=== PATIENT | male | born 1950 | race Caucasian/White ===

== ENCOUNTER 2017-11-10 21:55 | Emergency (ER) | payer MEDICARE, OTHER ==
[2017-11-10 22:20] LABS: BILIRUBIN,URINE NEGATIVE (NEGATIVE); GLUCOSE, URINE (UA) 500 mg/dL (NEGATIVE); KETONES,URINE (UA) >=80 mg/dL (NEGATIVE); LEUKOCYTE ESTERASE, URINE SMALL (NEGATIVE); NITRITE,URINE POSITIVE (NEGATIVE); OCCULT BLOOD,URINE SMALL (NEGATIVE); PROTEIN,URINE TRACE mg/dL (NEGATIVE); UROBILINOGEN,URINE 0.2 (NORMAL) E.U./dL (NORMAL)
[2017-11-10] MEDS ORDERED: ONDANSETRON 4 MG/2 ML VIAL IVP STA (22:21)
[2017-11-10] MEDS ORDERED: SODIUM CHLORIDE 0.9% 1,000 ML IV ONE (22:21)
[2017-11-10 22:23] LABS: CLARITY,URINE HAZY (CLEAR)
[2017-11-10 22:27] LABS: BACTERIA,URINE Many /HPF (None Seen); RBC,URINE 0-5 /HPF (0-5); SQUAMOUS EPITHELIAL CELL,UR NONE SEEN (<= Few)
[2017-11-10 22:35] LABS: BASOPHILS % (AUTO) 0.2 %; HGB - HEMOGLOBIN 14.1 g/dL (14.0-18.0); LYMPHOCYTES # (AUTO) 0.5 10^3/uL (1.5-3.5); LYMPHOCYTES % (AUTO) 2.6 %; MEAN CORPUSCULAR HEMOGLOBIN 29.6 pg (27.0-31.0); MEAN CORPUSCULAR HGB CONC 33.2 g/dL (32.0-36.0); MEAN CORPUSCULAR VOLUME 89.1 fL (80.0-94.0); MEAN PLATELET VOLUME 10.6 fL (7.4-11.4); MONOCYTES # (AUTO) 1.7 10^3/uL (0.0-1.0); MONOCYTES % (AUTO) 8.4 %; NEUTROPHILS # (AUTO) 17.5 10^3/uL (1.5-6.6); NEUTROPHILS % (AUTO) 88.8 %; PLT - PLATELET COUNT 121 10^3/uL (130-450); RED BLOOD COUNT 4.77 10^6/uL (4.70-6.10); RED CELL DISTRIBUTION WIDTH 13.3 % (12.0-15.0); WHITE BLOOD COUNT 19.8 x10^3/uL (4.8-10.8)
--- NOTE | 2017-11-10 22:37 | ED Physician Documentation ---
PD HPI NVD - Stated complaint Stated Complaint: VOMITTING/DIZZY/NAUSEA - Chief complaint Chief Complaint: Abd Pain - History obtained from History obtained from: Patient - History of Present Illness Timing - onset: Enter time (01:00), Today Timing - details: Gradual onset Associated symptoms: Dizzy, Loss of appetite. No: Fever (has not been taking temperature, but experiencing chills and sweats), Abdominal pain, Chest pain, Dysuria Worsened by: Eating Similar symptoms before: Has not had sx before Recently seen: Not recently seen - Additonal information Additional information: nausea, vomiting since 1 AM. chills, sweats, dizziness. bilateral blurry vision at times. recently fell and hit his head, denies LOC. blood sugars have been running upper 100s-lower 200s Review of Systems Constitutional: reports: Chills, Sweats Cardiac: reports: Reviewed and negative Respiratory: reports: Reviewed and negative GI: reports: Nausea, Vomiting. denies: Abdominal Pain, Constipation, Diarrhea : reports: Frequency. denies: Dysuria PD PAST MEDICAL HISTORY - Past Medical History Past Medical History: Yes Cardiovascular: Hypertension, High cholesterol Endocrine/Autoimmune: Type 1 diabetes - Past Surgical History Past Surgical History: No - Present Medications Home Medications: Ambulatory Orders Medication Instructions Recorded Confirmed Atorvastatin Calcium 80 mg PO DAILY PM 11/10/17 11/10/17 Fluocinonide 1 applic TOP PRN PRN 11/10/17 11/10/17 Insulin Glargine [Lantus Solostar] 9 units SQ BID 11/10/17 11/10/17 Insulin Lispro [Humalog] 1 unit SQ AC 11/10/17 11/10/17 Losartan Potassium 25 mg PO DAILY 11/10/17 11/10/17 Ciprofloxacin HCl [Cipro] 500 mg PO BID #14 tablet 11/11/17 Meclizine HCl 12.5 - 25 mg PO Q6HR PRN #20 tablet 11/11/17 Ondansetron Odt [Zofran] 4 mg TL Q6H PRN #10 tablet 11/11/17 - Allergies Allergies/Adverse Reactions: Allergies Allergy/AdvReac Type Severity Reaction Status Date / Time No Known Drug Allergies Allergy Verified 11/10/17 22:11 PD ED PE NORMAL - Vitals Vital signs reviewed: Yes - General General: Alert and oriented X 3, No acute distress, Well developed/nourished - HEENT HEENT: PERRL, EOMI, Moist mucous membranes, Other (nystagmus with bilateral lateral gaze) - Neck Neck: Supple, no meningeal sign - Cardiac Cardiac: RRR, No murmur - Respiratory Respiratory: No respiratory distress, Clear bilaterally - Abdomen Abdomen: Normal bowel sounds, Soft, Non tender, Non distended - Derm Derm: Normal color, Warm and dry - Neuro Neuro: Alert and oriented X 3, credit advisor 2-12 intact, No motor deficit, No sensory deficit Results - Vitals Vitals: Vital Signs - 24 hr 11/10/17 11/10/17 11/10/17 21:59 22:36 23:33 Temperature 36.9 C 36.7 C Heart Rate 109 H 99 97 Respiratory 16 14 15 Rate Blood Pressure 155/71 H 147/86 H 141/81 H O2 Saturation 97 97 100 11/11/17 11/11/17 00:57 01:43 Temperature 37.0 C Heart Rate 101 H 99 Respiratory 18 18 Rate Blood Pressure 152/88 H 144/79 H O2 Saturation 96 99 Oxygen O2 Source Room air - Labs Labs: Microbiology 11/10/17 22:14 Urine Culture - Preliminary Urine,Clean Catch CULTURE IN PROGRESS. RESULTS TO FOLLOW. Laboratory Tests 11/10/17 11/10/17 11/10/17 22:06 22:14 22:28 WBC 19.8 H RBC 4.77 Hgb 14.1 Hct 42.4 MCV 89.1 MCH 29.6 MCHC 33.2 RDW 13.3 Plt Count 121 L MPV 10.6 Neut # (Auto) 17.5 H Lymph # (Auto) 0.5 L [place] # (Auto) 1.7 H Eos # (Auto) 0.0 Baso # (Auto) 0.0 Absolute Nucleated RBC 0.00 Nucleated RBC % 0.0 VBG pH VBG pCO2 VBG pO2 VBG HCO3 VBG Total CO2 VBG O2 Saturation VBG Base Excess Sodium Potassium Chloride Carbon Dioxide Anion Gap BUN Creatinine Estimated GFR (MDRD) Glucose POC Whole Bld Glucose 195 H Calcium Total Bilirubin AST ALT Alkaline Phosphatase Total Protein Albumin Globulin Albumin/Globulin Ratio Lipase Urine Color YELLOW Urine Clarity HAZY Urine pH 6.0 Ur Specific [place] 1.020 Urine Protein TRACE Urine Glucose (UA) 500 H Urine Ketones >=80 H Urine Occult Blood SMALL H Urine Nitrite POSITIVE H Urine Bilirubin NEGATIVE Urine Urobilinogen 0.2 (NORMAL) Ur Leukocyte Esterase SMALL H Urine RBC 0-5 Urine WBC >25 H Ur Squamous Epith Cells NONE SEEN Urine Bacteria Many H Urine Culture Comments INDICATED Serum Ketones 11/10/17 11/10/17 11/10/17 22:28 22:28 22:35 WBC RBC Hgb Hct MCV MCH MCHC RDW Plt Count MPV Neut # (Auto) Lymph # (Auto) [place] # (Auto) Eos # (Auto) Baso # (Auto) Absolute Nucleated RBC Nucleated RBC % VBG pH 7.427 H VBG pCO2 41.8 VBG pO2 38.6 VBG HCO3 26.9 VBG Total CO2 28.2 VBG O2 Saturation 77.6 VBG Base Excess 2.3 H Sodium 131 L Potassium 3.9 Chloride 97 L Carbon Dioxide 27 Anion Gap 7.0 BUN 15 Creatinine 0.8 Estimated GFR (MDRD) 96 Glucose 204 H POC Whole Bld Glucose Calcium 8.7 Total Bilirubin 1.1 H AST 20 ALT 17 Alkaline Phosphatase 51 Total Protein 7.1 Albumin 3.9 Globulin 3.2 Albumin/Globulin Ratio 1.2 Lipase 22 Urine Color Urine Clarity Urine pH Ur Specific [place] Urine Protein Urine Glucose (UA) Urine Ketones Urine Occult Blood Urine Nitrite Urine Bilirubin Urine Urobilinogen Ur Leukocyte Esterase Urine RBC Urine WBC Ur Squamous Epith Cells Urine Bacteria Urine Culture Comments Serum Ketones NEGATIVE 11/11/17 00:53 WBC RBC Hgb Hct MCV MCH MCHC RDW Plt Count MPV Neut # (Auto) Lymph # (Auto) [place] # (Auto) Eos # (Auto) Baso # (Auto) Absolute Nucleated RBC Nucleated RBC % VBG pH VBG pCO2 VBG pO2 VBG HCO3 VBG Total CO2 VBG O2 Saturation VBG Base Excess Sodium Potassium Chloride Carbon Dioxide Anion Gap BUN Creatinine Estimated GFR (MDRD) Glucose POC Whole Bld Glucose 208 H Calcium Total Bilirubin AST ALT Alkaline Phosphatase Total Protein Albumin Globulin Albumin/Globulin Ratio Lipase Urine Color Urine Clarity Urine pH Ur Specific [place] Urine Protein Urine Glucose (UA) Urine Ketones Urine Occult Blood Urine Nitrite Urine Bilirubin Urine Urobilinogen Ur Leukocyte Esterase Urine RBC Urine WBC Ur Squamous Epith Cells Urine Bacteria Urine Culture Comments Serum Ketones - Rads (name of study) CT head Radiology: Prelim report reviewed, See rad report PD MEDICAL DECISION MAKING - ED course Complexity details: reviewed results, re-evaluated patient, considered differential, d/w patient, d/w family ED course: reported resolution of symptoms after IV fluids, antivert, zofran - Sepsis Event Vital Signs: Vital Signs - 24 hr 11/10/17 11/10/17 11/10/17 21:59 22:36 23:33 Temperature 36.9 C 36.7 C Heart Rate 109 H 99 97 Respiratory 16 14 15 Rate Blood Pressure 155/71 H 147/86 H 141/81 H O2 Saturation 97 97 100 11/11/17 11/11/17 00:57 01:43 Temperature 37.0 C Heart Rate 101 H 99 Respiratory 18 18 Rate Blood Pressure 152/88 H 144/79 H O2 Saturation 96 99 Oxygen O2 Source Room air Departure - Departure Disposition: 01 Home, Self Care Clinical Impression: Vomiting, Dizziness, Cystitis Condition: Good Instructions: ED Dizziness UKO, ED UTI Cystitis Male, ED Nausea Vomiting Prescriptions: Meclizine HCl 12.5 - 25 mg PO Q6HR PRN #20 tablet PRN Reason: Dizziness Ciprofloxacin HCl [Cipro] 500 mg PO BID #14 tablet Ondansetron Odt [Zofran] 4 mg TL Q6H PRN #10 tablet PRN Reason: Nausea / Vomiting Discharge Date/Time: 11/11/17 02:00
[2017-11-10 22:39] LABS: VBG BASE EXCESS 2.3 mmol/L (-2 - +2); VBG PCO2 41.8 mmHg (41-51); VBG PH 7.427 (7.31-7.41); VBG PO2 38.6 mmHg (25-47); VBG TOTAL CO2 28.2 mmol/L (24-29)
[2017-11-10 22:50] LABS: ALBUMIN 3.9 g/dL (3.2-5.5); ALBUMIN/GLOBULIN RATIO 1.2 (1.0-2.2); BILIRUBIN,TOTAL 1.1 mg/dL (0.2-1.0); CALCIUM 8.7 mg/dL (8.5-10.3); CREATININE 0.8 mg/dL (0.6-1.2); TOTAL PROTEIN 7.1 g/dL (6.7-8.2)
[2017-11-10] MEDS ORDERED: MECLIZINE 12.5 MG TABLET PO STA (23:03)
--- NOTE | 2017-11-10 23:48 | CT Report ---
Procedure Date: 11/10/2017 Accession Number: [id number] / [id number] Procedure: CT - Head W/O CPT Code: FULL RESULT: EXAM: CT HEAD EXAM DATE: 11/10/2017 11:29 PM. CLINICAL HISTORY: Dizziness, visual changes, recent head injury. COMPARISON: None. TECHNIQUE: Multiaxial CT images were obtained from the foramen magnum to the vertex. Reformats: Sagittal and coronal. IV contrast: None. In accordance with CT protocol optimization, one or more of the following dose reduction techniques were utilized for this exam: automated exposure control, adjustment of mA and/or KV based on patient size, or use of iterative reconstructive technique. FINDINGS: Parenchyma: No intraparenchymal hemorrhage. No evidence of mass, midline shift, or CT findings of infarction. Nguyen-white differentiation is distinct. Extraaxial Spaces: Normal for age. No subdural or epidural collections identified. Ventricles: Normal in size and position. Sinuses and Orbits: Imaged paranasal sinuses, orbits, and mastoids show no significant abnormality. Bones: No evidence of fracture or calvarial defect. Other: None. IMPRESSION: No acute or focal intracranial abnormality. RADIA
[2017-11-11] MEDS ORDERED: cefTRIAXone 1 GM in SODIUM CHLORIDE 0.9% MINIBAG 100 ML IV STA (00:14)
[2017-11-11] MEDS ORDERED: SODIUM CHLORIDE 0.9% 1,000 ML IV STA (00:15)
[2017-11-11 01:44] VITALS: BP 144/79
== END 2017-11-11 02:00 | disposition home or self-care (01) ==
LOC: ED 21:55
DX: N30.90 Cystitis, unspecified without hematuria (principal); R42 Dizziness and giddiness; H53.8 Other visual disturbances; R11.2 Nausea with vomiting, unspecified; E10.9 Type 1 diabetes mellitus without complications; Z79.4 Long term (current) use of insulin; I10 Essential (primary) hypertension
CPT/HCPCS: 36415; 70450; 80053; 81001; 82009; 82803; 83690; 85025; 87086; 87181; 96361; 96365; 96375; 99283; 99284; A9270

== ENCOUNTER 2017-11-11 22:29 | Emergency (ER) | payer MEDICARE, OTHER ==
--- NOTE | 2017-11-11 22:55 | ED Physician Documentation ---
PD HPI MALE - Stated complaint Stated Complaint: CANNOT URINATE - Chief complaint Chief Complaint: General - History obtained from History obtained from: Patient - History of Present Illness Timing - onset: Today Associated symptoms: Unable to urinate Recently seen: Emergency Dept (Was seen here last night, and was prescribed Cipro for UTI.) - Additional information Additional information: The patient is a 67-year-old male who presents with urinary retention. He has been dribbling, but unable to urinate. He was seen here last night with abdominal pain and vomiting, and was diagnosed with acute urinary tract infection, for which he was prescribed Cipro. He denies fever, and has not had vomiting today. He reports history of similar symptoms about 20 years ago. Review of Systems Constitutional: denies: Fever Nose: denies: Congestion Cardiac: denies: Chest pain / pressure Respiratory: denies: Dyspnea, Cough GI: reports: Abdominal Pain. denies: Nausea, Vomiting : reports: Unable to Void. denies: Dysuria Skin: denies: Rash Musculoskeletal: denies: Back pain Neurologic: denies: Headache PD PAST MEDICAL HISTORY - Past Medical History Cardiovascular: Hypertension, High cholesterol Endocrine/Autoimmune: Type 2 diabetes - Past Surgical History Past Surgical History: No General: Appendectomy Ortho: Shoulder arthroplasty - Present Medications Home Medications: Ambulatory Orders Medication Instructions Recorded Confirmed Atorvastatin Calcium 80 mg PO DAILY PM 11/10/17 11/11/17 Fluocinonide 1 applic TOP PRN PRN 11/10/17 11/11/17 Insulin Glargine [Lantus Solostar] 9 units SQ BID 11/10/17 11/11/17 Insulin Lispro [Humalog] 1 unit SQ AC 11/10/17 11/11/17 Losartan Potassium 25 mg PO DAILY 11/10/17 11/11/17 Ciprofloxacin HCl [Cipro] 500 mg PO BID #14 tablet 11/11/17 11/11/17 Meclizine HCl 12.5 - 25 mg PO Q6HR PRN #20 tablet 11/11/17 11/11/17 Ondansetron Odt [Zofran] 4 mg TL Q6H PRN #10 tablet 11/11/17 11/11/17 - Allergies Allergies/Adverse Reactions: Allergies Allergy/AdvReac Type Severity Reaction Status Date / Time No Known Drug Allergies Allergy Verified 11/11/17 22:36 - Social History Does the pt smoke?: No Smoking Status: Former smoker Does the pt drink ETOH?: Yes PD ED PE NORMAL - Vitals Vital signs reviewed: Yes (Initially hypertensive.) - General General: Alert and oriented X 3, Well developed/nourished - HEENT HEENT: Atraumatic, Moist mucous membranes - Neck Neck: No adenopathy, No JVD - Cardiac Cardiac: RRR - Respiratory Respiratory: No respiratory distress, Clear bilaterally - Abdomen Abdomen: Normal bowel sounds, Soft, Other (Distended bladder, with associated tenderness to palpation in the suprapubic region, without rebound or guarding.) - Back Back: No CVA TTP - Derm Derm: No rash - Extremities Extremities: No edema, No calf tenderness / cord - Neuro Neuro: Alert and oriented X 3, Normal speech Results - Vitals Vitals: Vital Signs - 24 hr 11/11/17 11/12/17 22:35 00:41 Temperature 36.8 C Heart Rate 97 94 Respiratory 18 18 Rate Blood Pressure 155/79 H 144/86 H O2 Saturation 97 97 Oxygen O2 Source Room air - Labs Labs: Laboratory Tests 11/11/17 22:55 Urine Color LT. YELLOW Urine Clarity CLEAR Urine pH 6.5 Ur Specific [place] 1.010 Urine Protein NEGATIVE Urine Glucose (UA) >=1000 H Urine Ketones TRACE Urine Occult Blood MODERATE H Urine Nitrite NEGATIVE Urine Bilirubin NEGATIVE Urine Urobilinogen 0.2 (NORMAL) Ur Leukocyte Esterase TRACE H Urine RBC 11-25 H Urine WBC 11-25 H Urine WBC Clumps PRESENT Ur Squamous Epith Cells RARE Squamous Urine Bacteria None Seen Ur Microscopic Review INDICATED Urine Culture Comments INDICATED PD MEDICAL DECISION MAKING - ED course Complexity details: reviewed old records, reviewed results, re-evaluated patient , considered differential, d/w patient, d/w family ED course: The patient's presentation is significant for urinary tract infection with acute urinary retention. When Mcdonough catheter was inserted greater than 1 L of urine drained. Urinalysis is positive for microscopic hematuria as well as pyuria. There are no blood clots in the urine. His presentation does not suggest pyelonephritis nor sepsis. He is discharged with a leg bag in place. I discussed with him the care of Mcdonough catheter, importance of outpatient follow-up within the next 3-5 days, continued antibiotic treatment, as well as potentially worrisome signs or symptoms that should prompt reevaluation in the emergency department. - Sepsis Event Vital Signs: Vital Signs - 24 hr 11/11/17 11/12/17 22:35 00:41 Temperature 36.8 C Heart Rate 97 94 Respiratory 18 18 Rate Blood Pressure 155/79 H 144/86 H O2 Saturation 97 97 Oxygen O2 Source Room air Departure - Departure Disposition: 01 Home, Self Care Clinical Impression: Acute urinary retention UTI (urinary tract infection) Qualifiers: Urinary tract infection type: acute cystitis Hematuria presence: with hematuria Qualified Code(s): N30.01 - Acute cystitis with hematuria Condition: Stable Instructions: ED Catheter Care Mcdonough, ED Retention Urinary Male, ED UTI Cystitis Male Comments: Keep Mcdonough catheter in place for the next 3 days. Continue taking Cipro twice daily as previously prescribed. Follow up with your primary physician within 3 days if possible. Return to the emergency department if recurrent or increasing abdominal pain, fever with shaking chills, or otherwise worsening symptoms. Discharge Date/Time: 11/12/17 00:44
[2017-11-11 23:07] LABS: BILIRUBIN,URINE NEGATIVE (NEGATIVE); GLUCOSE, URINE (UA) >=1000 mg/dL (NEGATIVE); KETONES,URINE (UA) TRACE mg/dL (NEGATIVE); LEUKOCYTE ESTERASE, URINE TRACE (NEGATIVE); NITRITE,URINE NEGATIVE (NEGATIVE); OCCULT BLOOD,URINE MODERATE (NEGATIVE); PH,URINE 6.5 PH (5.0-7.5); PROTEIN,URINE NEGATIVE (NEGATIVE); UROBILINOGEN,URINE 0.2 (NORMAL) E.U./dL (NORMAL)
[2017-11-11 23:23] LABS: CLARITY,URINE CLEAR (CLEAR)
[2017-11-11 23:24] LABS: BACTERIA,URINE None Seen /HPF (None Seen); SQUAMOUS EPITHELIAL CELL,UR RARE Squamous (<= Few); WBC CLUMPS,URINE PRESENT
[2017-11-12 00:42] VITALS: BP 144/86
== END 2017-11-12 00:44 | disposition home or self-care (01) ==
LOC: ED 22:29
DX: R33.9 Retention of urine, unspecified (principal); N30.01 Acute cystitis with hematuria; I10 Essential (primary) hypertension; E11.9 Type 2 diabetes mellitus without complications; Z79.4 Long term (current) use of insulin; Z87.891 Personal history of nicotine dependence
CPT/HCPCS: 51702; 51798; 81001; 81003; 87086; 99283

== ENCOUNTER 2017-11-12 21:52 | Observation (INO) | payer MEDICARE, OTHER ==
--- NOTE | 2017-11-12 22:06 | ED Physician Documentation ---
History of Present Illness - Stated complaint Stated Complaint: FEVER/DIZZINESS - Chief complaint Chief Complaint: Neuro - History obtained from History obtained from: Patient - History of Present Illness Timing: How many days ago (3-4) Pain level now: 0 Improved by: rest Worsened by: standing, ambulating Associated symptoms: nausea, vomiting, dizziness, unsteady gait - Additonal information Additional information: T+R 2 days ago and again yesterday. 2 days ago he had nausea, vomiting, dizziness; symptoms improved with fluids, zofran, antivert. Tx. for UTI. Returned yesterday for urinary retention, resolved with talavera placement ( remains in place). Today, he has had increasing dizziness despite using antivert , worsening nausea despite using zofran (vomiting during this H+P), and had fever Tmax 101 tonight with diaphoresis and lightheadedness. Review of Systems Constitutional: reports: Fever, Chills, Sweats Eyes: reports: Reviewed and negative Ears: reports: Reviewed and negative Nose: reports: Reviewed and negative Throat: reports: Reviewed and negative Cardiac: reports: Reviewed and negative Respiratory: reports: Reviewed and negative GI: reports: Nausea, Vomiting. denies: Abdominal Pain, Diarrhea : denies: Dysuria, Frequency Skin: reports: Reviewed and negative Musculoskeletal: reports: Reviewed and negative Neurologic: reports: Generalized weakness. denies: Focal weakness, Numbness, Syncope, Confused, Altered mental status, Headache PD PAST MEDICAL HISTORY - Past Medical History Cardiovascular: Hypertension, High cholesterol Endocrine/Autoimmune: Type 2 diabetes - Past Surgical History Past Surgical History: No General: Appendectomy Ortho: Shoulder arthroplasty - Present Medications Home Medications: Ambulatory Orders Medication Instructions Recorded Confirmed Atorvastatin Calcium 80 mg PO DAILY 11/10/17 11/13/17 Fluocinonide 1 applic TOP PRN PRN 11/10/17 11/13/17 Insulin Glargine [Lantus Solostar] 9 units SQ BID 11/10/17 11/13/17 Insulin Lispro [Humalog] 1 - 10 unit SQ AC 11/10/17 11/13/17 Losartan Potassium 25 mg PO DAILY 11/10/17 11/13/17 Ciprofloxacin HCl [Cipro] 500 mg PO BID #14 tablet 11/11/17 11/13/17 Meclizine HCl 12.5 - 25 mg PO Q6HR PRN #20 tablet 11/11/17 11/13/17 Ondansetron Odt [Zofran Odt] 4 mg TL Q6H PRN #10 tablet 11/11/17 11/13/17 Meclizine [Antivert] 12.5 mg PO Q6H PRN #15 tablet 11/13/17 - Allergies Allergies/Adverse Reactions: Allergies Allergy/AdvReac Type Severity Reaction Status Date / Time No Known Drug Allergies Allergy Verified 11/12/17 22:00 - Social History Does the pt smoke?: No Smoking Status: Former smoker Does the pt drink ETOH?: Yes PD ED PE NORMAL - Vitals Vital signs reviewed: Yes - General General: Alert and oriented X 3, Well developed/nourished, Other (diaphoretic, vomiting at times) - HEENT HEENT: PERRL, EOMI, Other (dry mucous membranes) - Neck Neck: Supple, no meningeal sign - Cardiac Cardiac: RRR, No murmur - Respiratory Respiratory: No respiratory distress, Clear bilaterally - Abdomen Abdomen: Soft, Non tender, Non distended - Back Back: No CVA TTP - Derm Derm: Normal color, Warm and dry - Extremities Extremities: No edema - Neuro Neuro: Alert and oriented X 3 Eye Opening: Spontaneous Motor: Obeys Commands Verbal: Oriented GCS Score: 15 Results - Vitals Vitals: Vital Signs - 24 hr 11/12/17 11/13/17 23:31 00:04 Temperature 37.0 C Heart Rate 70 85 Respiratory 15 16 Rate Blood Pressure 148/83 H 147/76 H O2 Saturation 99 96 Oxygen O2 Source Room air - Labs Labs: Laboratory Tests 11/12/17 11/12/17 11/12/17 22:30 22:30 22:30 WBC 5.7 RBC 4.54 L Hgb 13.4 L Hct 40.5 L MCV 89.2 MCH 29.5 MCHC 33.1 RDW 13.5 Plt Count 108 L MPV 10.1 Neut # (Auto) 4.6 Lymph # (Auto) 0.5 L [place] # (Auto) 0.6 Eos # (Auto) 0.0 Baso # (Auto) 0.0 Absolute Nucleated RBC 0.00 Nucleated RBC % 0.1 VBG pH VBG pCO2 VBG pO2 VBG HCO3 VBG Total CO2 VBG O2 Saturation VBG Base Excess Sodium 133 L Potassium 4.0 Chloride 99 L Carbon Dioxide 27 Anion Gap 7.0 BUN 16 Creatinine 1.1 Estimated GFR (MDRD) 67 L Glucose 286 H Lactic Acid 0.7 Calcium 8.3 L Total Bilirubin 0.8 AST 30 ALT 24 Alkaline Phosphatase 52 Total Protein 6.5 L Albumin 3.0 L Globulin 3.5 Albumin/Globulin Ratio 0.9 L Lipase 21 L Urine Color Urine Clarity Urine pH Ur Specific [place] Urine Protein Urine Glucose (UA) Urine Ketones Urine Occult Blood Urine Nitrite Urine Bilirubin Urine Urobilinogen Ur Leukocyte Esterase Urine RBC Urine WBC Ur Squamous Epith Cells Urine Bacteria Ur Microscopic Review Urine Culture Comments Serum Ketones 11/12/17 11/12/17 11/12/17 22:49 23:00 23:00 WBC RBC Hgb Hct MCV MCH MCHC RDW Plt Count MPV Neut # (Auto) Lymph # (Auto) [place] # (Auto) Eos # (Auto) Baso # (Auto) Absolute Nucleated RBC Nucleated RBC % VBG pH 7.414 H VBG pCO2 42.2 VBG pO2 66.6 H VBG HCO3 26.4 VBG Total CO2 27.7 VBG O2 Saturation 93.1 H VBG Base Excess 1.6 Sodium Potassium Chloride Carbon Dioxide Anion Gap BUN Creatinine Estimated GFR (MDRD) Glucose Lactic Acid Calcium Total Bilirubin AST ALT Alkaline Phosphatase Total Protein Albumin Globulin Albumin/Globulin Ratio Lipase Urine Color LT. YELLOW Urine Clarity HAZY Urine pH 6.0 Ur Specific [place] 1.020 Urine Protein TRACE Urine Glucose (UA) >=1000 H Urine Ketones 40 H Urine Occult Blood SMALL H Urine Nitrite NEGATIVE Urine Bilirubin NEGATIVE Urine Urobilinogen 0.2 (NORMAL) Ur Leukocyte Esterase NEGATIVE Urine RBC 11-25 H Urine WBC 0-3 Ur Squamous Epith Cells NONE SEEN Urine Bacteria None Seen Ur Microscopic Review INDICATED Urine Culture Comments NOT INDICATED Serum Ketones NEGATIVE PD MEDICAL DECISION MAKING - ED course Complexity details: reviewed old records, reviewed results, re-evaluated patient , considered differential, d/w patient ED course: Symptoms improved with IV fluids, antivert, zofran. However, when he tried to ambulate, he was very unsteady and would likely have fallen if RNs were not standing next to him. Upon returning to his bed, he reported he again felt dizzy and nauseas, will admit for recurring symptoms. - Sepsis Event Vital Signs: Vital Signs - 24 hr 11/12/17 11/13/17 23:31 00:04 Temperature 37.0 C Heart Rate 70 85 Respiratory 15 16 Rate Blood Pressure 148/83 H 147/76 H O2 Saturation 99 96 Oxygen O2 Source Room air Departure - Departure Disposition: ED Place in Observation Clinical Impression: Dizziness Condition: Poor Discharge Date/Time: 11/13/17 01:49
[2017-11-12 22:44] LABS: BASOPHILS % (AUTO) 0.3 %; EOSINOPHILS % (AUTO) 0.1 %; HGB - HEMOGLOBIN 13.4 g/dL (14.0-18.0); LYMPHOCYTES # (AUTO) 0.5 10^3/uL (1.5-3.5); LYMPHOCYTES % (AUTO) 8.3 %; MEAN CORPUSCULAR HEMOGLOBIN 29.5 pg (27.0-31.0); MEAN CORPUSCULAR HGB CONC 33.1 g/dL (32.0-36.0); MEAN CORPUSCULAR VOLUME 89.2 fL (80.0-94.0); MEAN PLATELET VOLUME 10.1 fL (7.4-11.4); MONOCYTES # (AUTO) 0.6 10^3/uL (0.0-1.0); MONOCYTES % (AUTO) 10.3 %; NEUTROPHILS # (AUTO) 4.6 10^3/uL (1.5-6.6); PLT - PLATELET COUNT 108 10^3/uL (130-450); RED BLOOD COUNT 4.54 10^6/uL (4.70-6.10); RED CELL DISTRIBUTION WIDTH 13.5 % (12.0-15.0); WHITE BLOOD COUNT 5.7 x10^3/uL (4.8-10.8)
[2017-11-12] MEDS ORDERED: SODIUM CHLORIDE 0.9% 1,000 ML IV STA (22:47)
[2017-11-12] MEDS ORDERED: ONDANSETRON 4 MG/2 ML VIAL IVP STA (22:47)
[2017-11-12] MEDS ORDERED: cefTRIAXone 1 GM in SODIUM CHLORIDE 0.9% MINIBAG 100 ML IV STA (22:47)
[2017-11-12 22:57] LABS: ALBUMIN/GLOBULIN RATIO 0.9 (1.0-2.2); BILIRUBIN,TOTAL 0.8 mg/dL (0.2-1.0); CALCIUM 8.3 mg/dL (8.5-10.3); CREATININE 1.1 mg/dL (0.6-1.2); TOTAL PROTEIN 6.5 g/dL (6.7-8.2)
[2017-11-12 23:10] LABS: BILIRUBIN,URINE NEGATIVE (NEGATIVE); GLUCOSE, URINE (UA) >=1000 mg/dL (NEGATIVE); KETONES,URINE (UA) 40 mg/dL (NEGATIVE); LEUKOCYTE ESTERASE, URINE NEGATIVE (NEGATIVE); NITRITE,URINE NEGATIVE (NEGATIVE); OCCULT BLOOD,URINE SMALL (NEGATIVE); PROTEIN,URINE TRACE mg/dL (NEGATIVE); UROBILINOGEN,URINE 0.2 (NORMAL) E.U./dL (NORMAL)
[2017-11-12 23:11] LABS: VBG PCO2 42.2 mmHg (41-51); VBG PH 7.414 (7.31-7.41); VBG PO2 66.6 mmHg (25-47)
[2017-11-12 23:12] LABS: VBG BASE EXCESS 1.6 mmol/L (-2 - +2); VBG TOTAL CO2 27.7 mmol/L (24-29)
[2017-11-12 23:20] LABS: CLARITY,URINE HAZY (CLEAR)
[2017-11-12 23:47] LABS: BACTERIA,URINE None Seen /HPF (None Seen); SQUAMOUS EPITHELIAL CELL,UR NONE SEEN (<= Few)
[2017-11-13] MEDS ORDERED: MECLIZINE 12.5 MG TABLET PO STA (00:18)
[2017-11-13] MEDS ORDERED: MECLIZINE 12.5 MG TABLET PO PRN (00:56)
[2017-11-13] MEDS ORDERED: ZOLPIDEM 5 MG TABLET PO PRN (00:57)
[2017-11-13] MEDS ORDERED: ONDANSETRON 4 MG/2 ML VIAL IVP PRN (00:57)
[2017-11-13] MEDS ORDERED: ACETAMINOPHEN 325 MG TABLET PO PRN (00:57)
[2017-11-13] MEDS ORDERED: SODIUM CHLORIDE FLUSH 0.9% 10 ML SYRINGE IVP PRN (00:57)
[2017-11-13] MEDS ORDERED: PROCHLORPERAZINE 10 MG/2 ML VIAL IVP PRN (00:57)
[2017-11-13] MEDS ORDERED: PROMETHAZINE 25 MG/1 ML VIAL IM PRN (00:57)
[2017-11-13] MEDS ORDERED: oxyCODONE 5 MG TABLET PO PRN (00:57)
[2017-11-13] MEDS ORDERED: ATORVASTATIN 40 MG TABLET PO SCH (01:00)
[2017-11-13] MEDS ORDERED: SODIUM CHLORIDE 0.9% 1,000 ML IV SCH (01:00)
--- NOTE | 2017-11-13 01:06 | HISTORY & PHYSICAL EXAMINATION ---
Chief Complaint - Chief Complaint Chief Complaint: Vertigo History of Present Illness - Admitted From Admitted From:: Emergency Department - History Obtained From Records Reviewed: Yes History obtained from: Patient and patients Exam Limitations: Patient unable to ambulate secondary to vertigo - History of Present Illness HPI Comment/Other: Patient is a very pleasant 67-year-old gentleman with a past medical history significant for type 1 diabetes mellitus, hypertension, hyperlipidemia and right shoulder arthritis who presented to the emergency department with a chief complaint of vertigo. The patient states he was in his normal state of health until 4 days ago when he began having flulike symptoms with vomiting, dizziness and chills that continued to worsen through the night and patient was unable to get any sleep. The next day the patient came to the emergency department as he continued to feel nauseated and had dizziness. In the emergency department the patient underwent complete workup which revealed a leukocytosis of 19,000 with urine analysis positive for UTI with greater than 25 WBCs. The patient was given 1 dose of IV ceftriaxone and IV fluids and then sent home on oral ciprofloxacin. Of note the patient states that one week ago he tripped and hit his head on a stack of kayaks and then on a concrete floor. He however denies a headache and did undergo a CT of his head when he presented to the emergency department initially that was negative. The patient states that he did feel better and was able to go home from the emergency department. He states that the next day he began developing urinary retention and had to come back to the emergency department to have a Mcdonough catheter placed which he states made him feel significantly better. He states that he felt better shortly however once he returned home he states that his vertigo returned. He states that his vertigo was so severe that he could not stand up without falling over. He states that last night he had to crawl to get to the bathroom just to avoid the sensation of dizziness and avoid falling over. The patient states that he continued to have nausea. He states that he could not get up from his chair or walk. Finally he states his daughter convinced him to come back to the emergency department as his vertigo was so severe. The patient denies any headache or any focal neurologic deficits. The patient denies any ear pain or tinnitus. The patient denies any runny nose, sore throat, nasal congestion. The patient denies any cough or shortness of breath. The patient denies having any fevers or chills in the last 24 hours. The patient does state that he was having blurred vision when he first presented to the emergency department 3 days ago but he states that this is resolved. The patient also stated that he had some dysuria when he first presented but this is improved with antibiotics. The patient denies any abdominal pain, diarrhea, constipation, joint pain, muscle aches, joint swelling, back pain, neck stiffness, recent unintentional weight loss, hair loss, skin changes, night sweats, polyuria or polydipsia. On presentation to the emergency department the patient was afebrile, he was tachycardic and hypertensive. The patient was not in any respiratory distress and saturating well on room air. The patient underwent routine lab work which showed a normal WBC count, mild thrombocytopenia, normal lactic acid, normal troponin, hyperglycemia, mild hyponatremia and otherwise electrolytes were within normal limits. The patient's urine analysis showed 11-25 RBCs but no bacteria or WBCs were seen. In the emergency department the patient attempted to ambulate but continued to get vertigo and then was falling to the left side. The patient needed to be helped back to his bed. Given the severity of the patient's vertigo it was felt that patient needed further workup for possibility of a posterior stroke. The patient was placed in observation for further workup. History - Past Medical History Cardiovascular: reports: Hypertension, High cholesterol Respiratory: reports: None Neuro: reports: None Endocrine/Autoimmune: reports: Type 2 diabetes GI: reports: None : reports: None HEENT: reports: None Psych: reports: None Musculoskeletal: reports: Osteoarthritis Derm: reports: None - Past Surgical History General: reports: Appendectomy Ortho: reports: Shoulder arthroplasty - Family & Social History Family History: Mother: Alive and Well, Parkinson's Disease, Father: Alive and Well, CVA/TIA, Other family: Diabetes, Type 2 Living arrangement: At home Living Situation: Alone Social History Notes: The patient lives in [facility] and move their just 3 months ago. He previously lived in [place], [place]. The patient's daughter has a home on [facility] but lives in [place]. The patient is a . 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 The patient states that he quit smoking 35 years ago and smoked for about 5 years up to a pack a day. The patient states that he drinks socially and denies any illicit drug use. - POLST Patient has POLST: No POLST Status: Full Code Meds/Allgy - Home Medications Home Medications: Ambulatory Orders Medication Instructions Recorded Confirmed Atorvastatin Calcium 80 mg PO DAILY PM 11/10/17 11/11/17 Fluocinonide 1 applic TOP PRN PRN 11/10/17 11/11/17 Insulin Glargine [Lantus Solostar] 9 units SQ BID 11/10/17 11/11/17 Insulin Lispro [Humalog] 1 unit SQ AC 11/10/17 11/11/17 Losartan Potassium 25 mg PO DAILY 11/10/17 11/11/17 Ciprofloxacin HCl [Cipro] 500 mg PO BID #14 tablet 11/11/17 11/11/17 Meclizine HCl 12.5 - 25 mg PO Q6HR PRN #20 tablet 11/11/17 11/11/17 Ondansetron Odt [Zofran] 4 mg TL Q6H PRN #10 tablet 11/11/17 11/11/17 - Allergies Allergies/Adverse Reactions: Allergies Allergy/AdvReac Type Severity Reaction Status Date / Time No Known Drug Allergies Allergy Verified 11/12/17 22:00 Review of Systems - Other Findings Other Findings: A comprehensive review of systems was performed the pertinent positives and negatives are stated above in the HPI and the remainder of the review of systems is negative. Exam - Vital Signs Reviewed Vital Signs: Yes Vital Signs: Vital Signs x48h Temp Pulse Resp BP Pulse Ox 11/13/17 01:02 83 16 149/79 H 96 11/13/17 00:04 85 16 147/76 H 96 11/12/17 23:31 37.0 C 70 15 148/83 H 99 11/12/17 23:02 87 17 174/90 H 95 11/12/17 21:56 37.3 C 105 H 16 154/94 H 95 - Physical Exam General Appearance: positive: No acute distress, Alert Eyes Bilateral: positive: Normal inspection, PERRL, EOMI, No lid inflammation, Conjunctivae nml ENT: positive: ENT inspection nml, Pharynx nml, Dry mucous membranes Neck: positive: Nml inspection, Thyroid nml, No JVD, Trachea midline. negative : Thyromegaly, Lymphadenopathy (R), Lymphadenopathy (L), Stiff neck, Carotid bruit, Tracheal deviation Respiratory: positive: Chest non-tender, No respiratory distress, Breath sounds nml. negative: Wheezes, Rales, Rhonchi Cardiovascular: positive: Regular rate & rhythm, No murmur, No gallop Peripheral Pulses: positive: 2+ Abdomen: positive: Non-tender, No organomegaly, Nml bowel sounds, No distention. negative: Guarding, Rebound, Hepatomegaly, Splenomegaly Back: positive: Nml inspection. negative: CVA tenderness (R), CVA tenderness (L ) Skin: positive: Color nml, No rash, Warm, Dry. negative: Diaphoresis, Pallor, Skin rash Extremities: positive: Non-tender, Full ROM, Nml appearance, No pedal edema Neurologic/Psychiatric: positive: Oriented x3, CN's nml (2-12), Motor nml, Sensation nml, Mood/affect nml Conclusion/Plan - Problem List (1) Vertigo Conclusion/Plan: The patient has been having continued symptoms of vertigo off and on since Sunday. The symptoms have become gradually more severe to a point where the patient is unable to stand or walk. When the patient attempts to walk he falls over. While lying in bed the patient's symptoms are improved. On examination the patient does not have any cerebellar signs or any focal deficits. The patient did have horizontal nystagmus on presentation but no longer has a horizontal nystagmus. Given that the patient's symptoms have not resolved it is felt that patient should undergo further workup for possible posterior stroke. Patient is being placed in observation for further workup Plan: Aspirin Lipitor Meclazine CTA head and neck MRI brain Echo Lipid profile [facility] (2) UTI (urinary tract infection) Conclusion/Plan: Patient was diagnosed with a urinary tract infection 3 days ago and was sent home with oral ciprofloxacin. Patient's UTI appears to be improving although he did have urinary retention and had a Mcdonough placed yesterday. The patient's urine analysis today shows no WBCs or bacteria. The patient's urine cultures growing E. coli but susceptibilities are not back. Plan: Continue ciprofloxacin Follow-up urine cultures Qualifiers: Urinary tract infection type: acute cystitis Hematuria presence: with hematuria Qualified Code(s): N30.01 - Acute cystitis with hematuria (3) Urinary retention Conclusion/Plan: The patient has urinary retention likely secondary to his urinary tract infection. Patient had a Mcdonough catheter placed in the emergency department the other day. For now we will continue the Mcdonough catheter but prior to discharge we will consider doing a trial of void. (4) Hyponatremia Conclusion/Plan: The patient has hyponatremia on presentation to the emergency department with a sodium of 133. The patient does appear to be dry and dehydrated. This is likely hypovolemic hyponatremia patient will be given IV fluids and we will continue to monitor his sodium. (5) Diabetes mellitus Conclusion/Plan: The patient has a history of type 1 diabetes and is on insulin long-term. The patient's blood glucose is elevated on presentation this is likely due to ongoing infection. While the patient is hospitalized she will be placed on sliding scale insulin and continued on his home dose of Lantus. We will place the patient on diabetic diet. We will check a hemoglobin A1c. Patient's blood glucose will be checked before meals at bedtime Qualifiers: Diabetes mellitus type: type 1 Diabetes mellitus complication status: without complication Qualified Code(s): E10.9 - Type 1 diabetes mellitus without complications (6) Hypertension Conclusion/Plan: The patient has a history of hypertension and is on losartan at home. For now we will hold the patient's dose of losartan as were concerned about possible CVA. We will allow for permissive hypertension. (7) Hyperlipidemia Conclusion/Plan: Patient has a history of hyperlipidemia and is on Lipitor at home. We will continue the patient's Lipitor while he is hospitalized here especially in the setting of possible CVA. Qualifiers: Hyperlipidemia type: unspecified Qualified Code(s): E78.5 - Hyperlipidemia , unspecified - Lab Results Lab results reviewed: Yes Fish Bones: 11/12/17 22:30 11/12/17 22:30 Other Lab Results: Laboratory Results WBC 5.7 x10^3/uL (4.8-10.8) 11/12/17 22:30 RBC 4.54 10^6/uL (4.70-6.10) L 11/12/17 22:30 Hgb 13.4 g/dL (14.0-18.0) L 11/12/17 22:30 Hct 40.5 % (42.0-52.0) L 11/12/17 22:30 MCV 89.2 fL (80.0-94.0) 11/12/17 22: MCH 29.5 pg (27.0-31.0) 11/12/17: MCHC 33.1 g/dL (32.0-36.0) 11/12/17 22: RDW 13.5 % (12.0-15.0) 11/12/17 22: Plt Count 108 10^3/uL (130-450) L 11/12/17 22: MPV 10.1 fL (7.4-11.4) 11/12/17 22:30 Neut # (Auto) 4.6 10^3/uL (1.5-6.6) 11/12/17: Lymph # (Auto) 0.5 10^3/uL (1.5-3.5) L 11/12/17: [place] # (Auto) 0.6 10^3/uL (0.0-1.0) 11/12/17 22: Eos # (Auto) 0.0 10^3/uL (0.0-0.7) 11/12/17: Baso # (Auto) 0.0 10^3/uL (0.0-0.1) 11/12/17: Absolute Nucleated RBC 0.00 x10^3/uL 11/12/17 22: Nucleated RBC % 0.1 /100WBC 11/12/17 22:30 VBG pH 7.414 (7.31-7.41) H 11/12/17 23:00 VBG pCO2 42.2 mmHg (41-51) 11/12/17 23:00 VBG pO2 66.6 mmHg (25-47) H 11/12/17 23:00 VBG HCO3 26.4 mmol/L (23-28) 11/12/17 23:00 VBG Total CO2 27.7 mmol/L (24-29) 11/12/17 23:00 VBG O2 Saturation 93.1 % (60-80) H 11/12/17 23:00 VBG Base Excess 1.6 mmol/L (-2 - +2) 11/12/17 23:00 Sodium 133 mmol/L (135-145) L 11/12/17 22:30 Potassium 4.0 mmol/L (3.5-5.0) 11/12/17 22:30 Chloride 99 mmol/L (101-111) L 11/12/17 22:30 Carbon Dioxide 27 mmol/L (21-32) 11/12/17 22:30 Anion Gap 7.0 (6-13) 11/12/17 22:30 BUN 16 mg/dL (6-20) 11/12/17 22:30 Creatinine 1.1 mg/dL (0.6-1.2) 11/12/17 22:30 Estimated GFR (MDRD) 67 (>89) L 11/12/17 22:30 Glucose 286 mg/dL (70-100) H 11/12/17 22:30 Lactic Acid 0.7 mmol/L (0.5-2.2) 11/12/17:30 Calcium 8.3 mg/dL (8.5-10.3) L 11/12/17:30 Total Bilirubin 0.8 mg/dL (0.2-1.0) 11/12/17 22:30 AST 30 IU/L (10-42) 11/12/17 22:30 ALT 24 IU/L (10-60) 11/12/17 22:30 Alkaline Phosphatase 52 IU/L (42-121) 11/12/17 22:30 Total Protein 6.5 g/dL (6.7-8.2) L 11/12/17 22:30 Albumin 3.0 g/dL (3.2-5.5) L 11/12/17 22:30 Globulin 3.5 g/dL (2.1-4.2) 11/12/17 22:30 Albumin/Globulin Ratio 0.9 (1.0-2.2) L 11/12/17 22:30 Lipase 21 U/L (22-51) L 11/12/17 22:30 Urine Color LT. YELLOW 11/12/17 23:00 Urine Clarity HAZY (CLEAR) 11/12/17 23:00 Urine pH 6.0 PH (5.0-7.5) 11/12/17 23:00 Ur Specific [place] 1.020 (1.002-1.030) 11/12/17 23:00 Urine Protein TRACE mg/dL (NEGATIVE) 11/12/17 23:00 Urine Glucose (UA) >=1000 mg/dL (NEGATIVE) H 11/12/17 23:00 Urine Ketones 40 mg/dL (NEGATIVE) H 11/12/17 23:00 Urine Occult Blood SMALL (NEGATIVE) H 11/12/17 23:00 Urine Nitrite NEGATIVE (NEGATIVE) 11/12/17 23:00 Urine Bilirubin NEGATIVE (NEGATIVE) 11/12/17 23:00 Urine Urobilinogen 0.2 (NORMAL) E.U./dL (NORMAL) 11/12/17 23:00 Ur Leukocyte Esterase NEGATIVE (NEGATIVE) 11/12/17 23:00 Urine RBC 11-25 /HPF (0-5) H 11/12/17 23:00 Urine WBC 0-3 /HPF (0-3) 11/12/17 23:00 Ur Squamous Epith Cells NONE SEEN (<= Few) 11/12/17 23:00 Urine Bacteria None Seen /HPF (None Seen) 11/12/17 23:00 Ur Microscopic Review INDICATED 11/12/17 23:00 Urine Culture Comments NOT INDICATED 11/12/17 23:00 Serum Ketones NEGATIVE (NEGATIVE) 11/12/17 22:49 - Diagnostic Imaging Results Diagnostic Imaging Results: positive: Final report reviewed Diagnostic Imaging Results Comments: Head CT angiogram Impression: No large vessel occlusion stenosis or aneurysm CT angiogram neck Impression: Mild atherosclerotic calcification of both carotid bulbs without stenosis. Vertebral arteries are patent in the neck. No finding concerning for dissection. Rounded, partially gas containing left paraesophageal process measures roughly 12 mm in diameter, presumed esophageal diverticulum. - EKG Results EKG Interpreted Independently: Yes EKG Findings: Normal sinus rhythm with no ST elevations or ischemic changes Core Measures - Anticipated LOS I expect patient to be DC'd or transferred within 96 hours.: Yes - DVT/VTE - Prophylaxis VTE/DVT Prophylaxis med ordered at admit?: Yes
[2017-11-13] MEDS ORDERED: IOPAMIDOL-300 100 ML VIAL ONE (01:54)
[2017-11-13] MEDS ORDERED: IOPAMIDOL-300 100 ML VIAL IVP ONE (02:19)
[2017-11-13] MEDS: SODIUM CHLORIDE FLUSH 0.9% 10 ML SYRINGE IVP SCH ×2 (02:46→09:18)
--- NOTE | 2017-11-13 03:25 | CT Report ---
Procedure Date: 11/13/2017 Accession Number: [id number] / [id number] Procedure: CT - Head Angio CPT Code: FULL RESULT: EXAM: CT ANGIOGRAM HEAD. CT SCAN OF THE HEAD WITHOUT AND WITH CONTRAST. EXAM DATE: 11/13/2017 02:21 AM CLINICAL HISTORY: Vertigo. COMPARISON: Head CT 11/10/2017. TECHNIQUE: - CT Scan Head: Using a multidetector scanner, axial images were acquired from the foramen magnum to the skull vertex prior to and following contrast administration. - CT Angiogram: Using a multidetector scanner, high-resolution axial images were acquired from the skull base through vertex following rapid infusion of intravenous contrast. Reformats: Multiplanar MIP reformats were reconstructed. Nascet criteria used for stenosis measurement. IV Contrast: ISOVUE 300 80mL. In accordance with CT protocol optimization, one or more of the following dose reduction techniques were utilized for this exam: automated exposure control, adjustment of mA and/or KV based on patient size, or use of iterative reconstructive technique. FINDINGS: NON-CONTRAST HEAD: Parenchyma: No intraparenchymal hemorrhage. No evidence of mass, midline shift, or CT findings of infarction. Nguyen-white differentiation is distinct. Extraaxial Spaces: Normal for age. No subdural or epidural collections identified. Ventricles: Normal in size and position. Sinuses and orbits: Imaged paranasal sinuses, orbits, and mastoids show no significant abnormality. Bones: No evidence of fracture or calvarial defect. Other: None. POST-CONTRAST HEAD: No abnormal enhancement. CT ANGIOGRAM HEAD: Vertebral arteries are codominant. Both PICA vessels are patent. Small focus of calcification intracranial left vertebral artery without stenosis. Basilar artery, superior cerebellar arteries and both posterior cerebral arteries are patent and unremarkable. 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 Both internal carotid arteries, anterior and middle cerebral arteries are patent and unremarkable. Patent anterior communicating. DURAL VENOUS SINUSES AND MAJOR CENTRAL VEINS: Patent. IMPRESSION: CT Head: No acute intracranial abnormality. Specifically, no evidence of acute infarct, hemorrhage, or mass lesion. No abnormal enhancement. CTA Head: No large vessel occlusion, stenosis or aneurysm. RADIA
--- NOTE | 2017-11-13 03:45 | CT Report ---
Procedure Date: 11/13/2017 Accession Number: [id number] / [id number] Procedure: CT - Neck Angio CPT Code: FULL RESULT: EXAM: CT ANGIOGRAM NECK EXAM DATE: 11/13/2017 02:23 AM. CLINICAL HISTORY: Vertigo concerning for posterior stroke. COMPARISON: None. TECHNIQUE: Routine axial helical imaging was performed from the skull base through the aortic arch. Reconstructions: Routine multiplanar 3D MIP reconstructions. IV Contrast: ISOVUE 300 80mL. Evaluation of arterial stenosis is based on a NASCET method of measurement. In accordance with CT protocol optimization, one or more of the following dose reduction techniques were utilized for this exam: automated exposure control, adjustment of mA and/or KV based on patient size, or use of iterative reconstructive technique. FINDINGS: Aortic arch, origins of the great vessels, brachiocephalic and both subclavian arteries are patent and unremarkable. Right Carotid: Mild calcification of the right carotid bulb without stenosis. Left Carotid: Mild calcification about the carotid bulb without stenosis. Vertebrals: Vertebral arteries are patent throughout the neck. They are roughly codominant. Intracranial Circulation: No significant abnormality. Other: Degenerative changes in the cervical spine are most pronounced at C5-C6 and C6-C7. Lung apices are clear. Rounded, partially gas-containing left paraesophageal process measures roughly 12 mm in diameter. IMPRESSION: Mild atherosclerotic calcification of both carotid bulbs without stenosis. Vertebral arteries are patent in the neck. No findings concerning for dissection. Rounded, partially gas-containing left paraesophageal process measures roughly 12 mm in diameter, presumed esophageal diverticulum. RADIA
[2017-11-13 05:42] LABS: ALBUMIN 2.9 g/dL (3.2-5.5); ALBUMIN/GLOBULIN RATIO 0.9 (1.0-2.2); BILIRUBIN,TOTAL 0.7 mg/dL (0.2-1.0); CALCIUM 7.9 mg/dL (8.5-10.3); CREATININE 0.9 mg/dL (0.6-1.2)
[2017-11-13 05:52] LABS: PT - PROTHROMBIN TIME 11.6 secs (9.9-12.6)
[2017-11-13 06:55] LABS: BASOPHILS % (AUTO) 0.2 %; EOSINOPHILS % (AUTO) 0.1 %; HGB - HEMOGLOBIN 13.1 g/dL (14.0-18.0); LYMPHOCYTES # (AUTO) 0.4 10^3/uL (1.5-3.5); LYMPHOCYTES % (AUTO) 7.9 %; MEAN CORPUSCULAR HEMOGLOBIN 29.7 pg (27.0-31.0); MEAN CORPUSCULAR HGB CONC 32.9 g/dL (32.0-36.0); MEAN PLATELET VOLUME 10.7 fL (7.4-11.4); MONOCYTES # (AUTO) 0.5 10^3/uL (0.0-1.0); MONOCYTES % (AUTO) 10.6 %; NEUTROPHILS # (AUTO) 3.6 10^3/uL (1.5-6.6); NEUTROPHILS % (AUTO) 81.2 %; PLT - PLATELET COUNT 114 10^3/uL (130-450); RED CELL DISTRIBUTION WIDTH 13.1 % (12.0-15.0); WHITE BLOOD COUNT 4.5 x10^3/uL (4.8-10.8)
[2017-11-13 07:01] LABS: PLATELET ESTIMATE, MANUAL DECREASED (<130,000) (NORMAL); PLATELET MORPHOLOGY 1+ LARGE PLATELETS (NORMAL)
[2017-11-13 07:28] LABS: HB2 TOTAL 13.7 g/dL; HEMOGLOBIN A1C 0.86 g/dL; HEMOGLOBIN A1C % 7.9 % (4.6-6.2)
[2017-11-13] MEDS ORDERED: ASPIRIN 325 MG TABLET PO SCH (08:00)
[2017-11-13] MEDS: INSULIN ASPART 300 UNIT/3 ML PEN SUBQ SCH ×3 (08:18→12:19)
[2017-11-13] MEDS ORDERED: CIPROFLOXACIN 250 MG TABLET PO SCH (09:00)
[2017-11-13] MEDS ORDERED: LOSARTAN 50 MG TABLET PO SCH (09:00)
[2017-11-13] MEDS ORDERED: INSULIN GLARGINE 300 UNIT/3 ML PEN SUBQ SCH (09:00)
[2017-11-13] MEDS ORDERED: ENOXAPARIN 40 MG/0.4 ML SYRINGE SUBQ SCH (09:00)
[2017-11-13] MEDS ORDERED: POLYETHYLENE GLYCOL 3350 17 GM PACKET PO SCH (09:00)
[2017-11-13] MEDS ORDERED: FAMOTIDINE 20 MG TABLET PO SCH (09:00)
--- NOTE | 2017-11-13 14:11 | MRI Report ---
Procedure Date: 11/13/2017 Accession Number: [id number] / [id number] Procedure: MRI - Brain W/O CPT Code: FULL RESULT: EXAM: MRI BRAIN WITHOUT CONTRAST EXAM DATE: 11/13/2017 11:50 AM. CLINICAL HISTORY: 67-year-old man with vertigo concerning for posterior circulation stroke. COMPARISON: CTA on 11/13/2017. TECHNIQUE: Multiplanar, multisequence T1-weighted and fluid-sensitive MR sequences of the brain were performed. Sequences optimized for routine evaluation. Other: None. IV Contrast: None. FINDINGS: Parenchyma: No evidence of acute infarct on diffusion weighted sequence. The parenchyma demonstrates minimal periventricular FLAIR hyperintensity, less than commonly seen in this age group. The infratentorial parenchyma demonstrates normal signal intensity on T1 and T2-weighted sequences. No evidence of prior hemorrhage on susceptibility weighted sequence. Pituitary: Unremarkable. Ventricles and Extra-axial Spaces: Ventricles are symmetric and normal in size for age. Extra-axial spaces are unremarkable. Orbits: Unremarkable. Sinuses: Paranasal sinuses and mastoid air cells are clear. Major Vascular Flow Voids: Intact. IMPRESSION: 1. Normal brain MRI. No evidence of infarct, hemorrhage, or mass lesion. RADIA
--- NOTE | 2017-11-13 16:54 | Discharge Plan ---
Discharge Plan Disposition: 01 Home, Self Care Condition: Poor Diet: Diabetic Activity Restrictions: Activity as Tolerated Shower Restrictions: No (fall precaution) Instruction Topics: Vertigo Ch Additional Instructions or Follow Up instructions: you may follow up your PCP in one week. Should your symptoms return or worsen, you may present ER or call 911 for help. No Smoking: If you smoke, Please STOP! Call for help. Follow-up with: MERI GUPTA MD [Primary Care Provider] -
--- NOTE | 2017-11-13 17:00 | DISCHARGE SUMMARY ---
Discharge Summary Discharge Date: 11/14/17 Discharging Provider: MESSINA Primary Care Provider: Dr. Shields Condition at Discharge: Poor Discharge Disposition: 01 Home, Self Care Discharge Facility Name: home - DIAGNOSES Admission Diagnoses: (1) Vertigo (2) UTI (urinary tract infection) (3) Urinary retention (4) Hyponatremia (5) Diabetes mellitus (6) Hypertension (7) Hyperlipidemia Discharge Diagnoses with Status of Each Condition: (1) Vertigo resolved. MRI of head, CTA of head and neck unremarkable, ECHO is unremarkable. (2) UTI (urinary tract infection) continue to home regimen (3) Urinary retention pt has urination before he was d/c (4) Hyponatremia resolved (5) Diabetes mellitus stable (6) Hypertension stable, follow up PCP management (7) Hyperlipidemia stable - HPI History of Present Illness: refer from Dr. Samuel's HPI as the following: Patient is a very pleasant 67-year-old gentleman with a past medical history significant for type 1 diabetes mellitus, hypertension, hyperlipidemia and right shoulder arthritis who presented to the emergency department with a chief complaint of vertigo. The patient states he was in his normal state of health until 4 days ago when he began having flulike symptoms with vomiting, dizziness and chills that continued to worsen through the night and patient was unable to get any sleep. The next day the patient came to the emergency department as he continued to feel nauseated and had dizziness. In the emergency department the patient underwent complete workup which revealed a leukocytosis of 19,000 with urine analysis positive for UTI with greater than 25 WBCs. The patient was given 1 dose of IV ceftriaxone and IV fluids and then sent home on oral ciprofloxacin. Of note the patient states that one week ago he tripped and hit his head on a stack of kayaks and then on a concrete floor. He however denies a headache and did undergo a CT of his head when he presented to the emergency department initially that was negative. The patient states that he did feel better and was able to go home from the emergency department. He states that the next day he began developing urinary retention and had to come back to the emergency department to have a Mcdonough catheter placed which he states made him feel significantly better. He states that he felt better shortly however once he returned home he states that his vertigo returned. He states that his vertigo was so severe that he could not stand up without falling over. He states that last night he had to crawl to get to the bathroom just to avoid the sensation of dizziness and avoid falling over. The patient states that he continued to have nausea. He states that he could not get up from his chair or walk. Finally he states his daughter convinced him to come back to the emergency department as his vertigo was so severe. The patient denies any headache or any focal neurologic deficits. The patient denies any ear pain or tinnitus. The patient denies any runny nose, sore throat, nasal congestion. The patient denies any cough or shortness of breath. The patient denies having any fevers or chills in the last 24 hours. The patient does state that he was having blurred vision when he first presented to the emergency department 3 days ago but he states that this is resolved. The patient also stated that he had some dysuria when he first presented but this is improved with antibiotics. The patient denies any abdominal pain, diarrhea, constipation, joint pain, muscle aches, joint swelling, back pain, neck stiffness, recent unintentional weight loss, hair loss, skin changes, night sweats, polyuria or polydipsia. On presentation to the emergency department the patient was afebrile, he was tachycardic and hypertensive. The patient was not in any respiratory distress and saturating well on room air. The patient underwent routine lab work which showed a normal WBC count, mild thrombocytopenia, normal lactic acid, normal troponin, hyperglycemia, mild hyponatremia and otherwise electrolytes were within normal limits. The patient's urine analysis showed 11-25 RBCs but no bacteria or WBCs were seen. In the emergency department the patient attempted to ambulate but continued to get vertigo and then was falling to the left side. The patient needed to be helped back to his bed. Given the severity of the patient's vertigo it was felt that patient needed further workup for possibility of a posterior stroke. The patient was placed in observation for further workup. - ALLERGIES Allergies/Adverse Reactions: Allergies Allergy/AdvReac Type Severity Reaction Status Date / Time No Known Drug Allergies Allergy Verified 11/12/17 22:00 - MEDICATIONS Home Medications: Ambulatory Orders Medication Instructions Recorded Confirmed Atorvastatin Calcium 80 mg PO DAILY 11/10/17 11/13/17 Fluocinonide 1 applic TOP PRN PRN 11/10/17 11/13/17 Insulin Glargine [Lantus Solostar] 9 units SQ BID 11/10/17 11/13/17 Insulin Lispro [Humalog] 1 - 10 unit SQ AC 11/10/17 11/13/17 Losartan Potassium 25 mg PO DAILY 11/10/17 11/13/17 Ciprofloxacin HCl [Cipro] 500 mg PO BID #14 tablet 11/11/17 11/13/17 Meclizine HCl 12.5 - 25 mg PO Q6HR PRN #20 tablet 11/11/17 11/13/17 Ondansetron Odt [Zofran Odt] 4 mg TL Q6H PRN #10 tablet 11/11/17 11/13/17 Meclizine [Antivert] 12.5 mg PO Q6H PRN #15 tablet 11/13/17 - PHYSICAL EXAM AT DISCHARGE General Appearance: positive: No acute distress, Alert. negative: Lethargic Eyes Bilateral: positive: Normal inspection, PERRL, No lid inflammation, Conjunctivae nml ENT: positive: ENT inspection nml, Pharynx nml, No signs of dehydration. negative: Purulent nasal drainage, Pharyngeal erythema, Oral lesions Neck: positive: Nml inspection, Thyroid nml, No JVD, Trachea midline. negative : Thyromegaly, Stiff neck, Carotid bruit, Swelling/bruising, Tracheal deviation Respiratory: positive: Chest non-tender, No respiratory distress, Breath sounds nml. negative: Wheezes, Rales, Rhonchi Cardiovascular: positive: Regular rate & rhythm, No murmur, No gallop. negative : Irregularly irregular, Extrasystoles, Tachycardia, Bradycardia, JVD present, Systolic murmur, Diastolic murmur Peripheral Pulses: positive: 2+ Abdomen: positive: Non-tender, No organomegaly, Nml bowel sounds, No distention. negative: Tenderness, Guarding, Rebound Back: positive: Nml inspection. negative: CVA tenderness (R), CVA tenderness (L ) Skin: positive: Color nml, No rash, Warm, Dry. negative: Cyanosis, Diaphoresis , Pallor Extremities: positive: Non-tender, Full ROM, Nml appearance. negative: Calf tenderness, Joint swelling, Tasneem's sign/cords Neurologic/Psychiatric: positive: Oriented x3, Motor nml, Sensation nml, Mood/ affect nml. negative: Weakness, Sensory loss, Facial droop, Slurred/abnml speech, Depressed mood/affect - LABS Result Diagrams: 11/13/17 05:10 11/13/17 05:10 - FOLLOW UP Follow Up: you may follow up your PCP in one week. Should your symptoms return or worsen, you may present ER or call 911 for help. - TIME SPENT Time Spent in Discharge (Minutes): 45
[2017-11-13 17:36] VITALS: BP 161/88
== END 2017-11-13 17:51 | disposition home or self-care (01) ==
LOC: ED 21:52 → MS3 11-13 00:57
PROVIDERS: ADMIT Internal Medicine; ATTEND Nurse Practitioner Gerontology
DX: R42 Dizziness and giddiness (principal); R11.0 Nausea; H55.09 Other forms of nystagmus; N30.01 Acute cystitis with hematuria; R33.9 Retention of urine, unspecified; E87.1 Hypo-osmolality and hyponatremia; E10.65 Type 1 diabetes mellitus with hyperglycemia; I10 Essential (primary) hypertension; E78.5 Hyperlipidemia, unspecified; Z91.81 History of falling; Z79.4 Long term (current) use of insulin; Z79.899 Other long term (current) drug therapy; Z87.891 Personal history of nicotine dependence
CPT/HCPCS: 36415; 51702; 70496; 70498; 70551; 80053; 81001; 82009; 82803; 83036; 83605; 83690; 84484; 85025; 85610; 87086; 93005; 93306; 96361; 96365; 96372; 96375; 97161; 99283; 99284; A9270; G0378; G8978; G8979; G8980; J1650; J1815; Q9967; 81003

== ENCOUNTER 2017-11-13 21:23 | Emergency (ER) | payer MEDICARE ==
--- NOTE | 2017-11-13 21:37 | ED Physician Documentation ---
PD HPI MALE - Stated complaint Stated Complaint: MALE /NO URINE OUTPUT - Chief complaint Chief Complaint: Abd Pain - History obtained from History obtained from: Patient - History of Present Illness Timing - onset: Today Timing - duration: Hours Timing - details: Gradual onset Associated symptoms: Unable to urinate Recently seen: Emergency Dept, Admitted - Additional information Additional information: admitted last night for dizziness, N/V. discharged from [facility] this morning and talavera catheter (which had been inserted 2 days ago in ED for urinary retention) was removed. Returns at this time due to urinary retention: unable to urinate despite urge, increasing pain and distention in suprapubic region. Review of Systems Constitutional: denies: Fever GI: reports: Abdominal Pain (suprapubic pain, distention). denies: Nausea, Vomiting PD PAST MEDICAL HISTORY - Past Medical History Cardiovascular: Hypertension, High cholesterol Respiratory: None Neuro: None Endocrine/Autoimmune: Type 2 diabetes GI: None : None HEENT: None Psych: None Musculoskeletal: Osteoarthritis Derm: None - Past Surgical History Past Surgical History: No General: Appendectomy Ortho: Shoulder arthroplasty - Present Medications Home Medications: Ambulatory Orders Medication Instructions Recorded Confirmed Atorvastatin Calcium 80 mg PO DAILY 11/10/17 11/13/17 Fluocinonide 1 applic TOP PRN PRN 11/10/17 11/13/17 Insulin Glargine [Lantus Solostar] 9 units SQ BID 11/10/17 11/13/17 Insulin Lispro [Humalog] 1 - 10 unit SQ AC 11/10/17 11/13/17 Losartan Potassium 25 mg PO DAILY 11/10/17 11/13/17 Ciprofloxacin HCl [Cipro] 500 mg PO BID #14 tablet 11/11/17 11/13/17 Meclizine HCl 12.5 - 25 mg PO Q6HR PRN #20 tablet 11/11/17 11/13/17 Ondansetron Odt [Zofran Odt] 4 mg TL Q6H PRN #10 tablet 11/11/17 11/13/17 Meclizine [Antivert] 12.5 mg PO Q6H PRN #15 tablet 11/13/17 - Allergies Allergies/Adverse Reactions: Allergies Allergy/AdvReac Type Severity Reaction Status Date / Time No Known Drug Allergies Allergy Verified 11/12/17 22:00 - Social History Does the pt smoke?: No Smoking Status: Former smoker Does the pt drink ETOH?: Yes Does the pt have substance abuse?: No - Immunizations Immunizations are current?: Yes - POLST Patient has POLST: No POLST Status: Full Code PD ED PE NORMAL - Vitals Vital signs reviewed: Yes - General General: Alert and oriented X 3, Well developed/nourished, Other (appears uncomfortable) - Abdomen Abdomen: Soft, Other (tender, distended suprapubic region) - Back Back: No CVA TTP Results - Vitals Vitals: Vital Signs - 24 hr 11/13/17 11/13/17 21:31 22:19 Temperature 36.5 C Heart Rate 86 87 Respiratory 18 14 Rate Blood Pressure 162/87 H 155/91 H O2 Saturation 98 98 Oxygen O2 Source Room air - Labs Labs: Laboratory Tests 11/13/17 21:50 Urine Color YELLOW Urine Clarity CLEAR Urine pH 6.0 Ur Specific [place] <=1.005 Urine Protein NEGATIVE Urine Glucose (UA) >=1000 H Urine Ketones NEGATIVE Urine Occult Blood MODERATE H Urine Nitrite NEGATIVE Urine Bilirubin NEGATIVE Urine Urobilinogen 0.2 (NORMAL) Ur Leukocyte Esterase NEGATIVE Urine RBC TNTC H Urine WBC 11-25 H Urine WBC Clumps PRESENT Ur Squamous Epith Cells RARE Squamous Urine Bacteria Rare Ur Microscopic Review INDICATED Urine Culture Comments INDICATED PD MEDICAL DECISION MAKING - ED course Complexity details: re-evaluated patient, considered differential, d/w patient ED course: RN placed talavera catheter without difficulty or resistance; rapid return of 700 cc of clear, yellow urine associated with complete resolution of symptoms. - Sepsis Event Vital Signs: Vital Signs - 24 hr 11/13/17 11/13/17 21:31 22:19 Temperature 36.5 C Heart Rate 86 87 Respiratory 18 14 Rate Blood Pressure 162/87 H 155/91 H O2 Saturation 98 98 Oxygen O2 Source Room air Departure - Departure Disposition: 01 Home, Self Care Clinical Impression: Acute urinary retention Condition: Good Instructions: ED Retention Urinary Male Follow-Up: MERI GUPTA MD [Primary Care Provider] - Comments: Follow up with your primary care provider as scheduled at the end of the week. Discharge Date/Time: 11/13/17 22:23
[2017-11-13 22:01] LABS: BILIRUBIN,URINE NEGATIVE (NEGATIVE); GLUCOSE, URINE (UA) >=1000 mg/dL (NEGATIVE); KETONES,URINE (UA) NEGATIVE (NEGATIVE); LEUKOCYTE ESTERASE, URINE NEGATIVE (NEGATIVE); NITRITE,URINE NEGATIVE (NEGATIVE); OCCULT BLOOD,URINE MODERATE (NEGATIVE); PROTEIN,URINE NEGATIVE (NEGATIVE); UROBILINOGEN,URINE 0.2 (NORMAL) E.U./dL (NORMAL)
[2017-11-13 22:04] LABS: CLARITY,URINE CLEAR (CLEAR)
[2017-11-13 22:13] LABS: RBC,URINE TNTC /HPF (0-5); SQUAMOUS EPITHELIAL CELL,UR RARE Squamous (<= Few); WBC CLUMPS,URINE PRESENT
[2017-11-13 22:14] LABS: BACTERIA,URINE Rare /HPF (None Seen)
[2017-11-13 22:20] VITALS: BP 155/91
== END 2017-11-13 22:23 | disposition home or self-care (01) ==
LOC: ED 21:23
DX: R33.9 Retention of urine, unspecified (principal)
CPT/HCPCS: 51702; 81001; 81003; 87086; 99283